=== PATIENT | female | born 2000 | race Caucasian/White ===

== ENCOUNTER 2022-09-12 08:17 | Inpatient (IN) ==
[2022-09-12] MEDS: Ringers Solution, Lactated 1,000 ML IVC SCH ×2 (08:45→11:16)
[2022-09-12] MEDS ORDERED: Naloxone 0.4 MG/ML INJ IVP PRN ×2 (08:55→15:35)
[2022-09-12] MEDS ORDERED: Ondansetron 4 MG/2 ML VIAL IVP PRN ×2 (08:55→15:35)
[2022-09-12] MEDS ORDERED: miSOPROStoL 25 MCG TABLET VG PRN (08:55)
[2022-09-12] MEDS ORDERED: Metoclopramide 10 MG/2 ML VIAL IVP PRN (08:55)
[2022-09-12] MEDS ORDERED: *HR* Nalbuphine 10 MG/ML AMPUL IV PRN (08:55)
[2022-09-12] MEDS ORDERED: Lidocaine 1% 20 ML MDV ID PRN (08:55)
[2022-09-12] MEDS ORDERED: Famotidine 20 MG/2 ML VIAL IVP PRN (08:55)
[2022-09-12] MEDS ORDERED: Azithromycin 500 MG in 0.9 % Sodium Chloride 250 ML IVPB PRN (08:55)
[2022-09-12] MEDS ORDERED: Ringers Solution, Lactated 1,000 ML ONE (09:00)
[2022-09-12 10:19] LABS: Basophils # 0.1 K/mcL (0.0-0.2); Basophils % 0.6 %; Eosinophils # 0.1 K/mcL (0.0-0.6); Eosinophils % 1.1 %; Hematocrit 33.5 % (35.3-44.9); Hemoglobin 10.7 g/dL (11.5-15.4); Lymphocytes # 1.9 K/mcL (0.6-4.6); Lymphocytes % 15.3 %; Mean Corpuscular HGB Conc 31.9 g/dL (31.6-35.5); Mean Corpuscular Hemoglobin 25.8 pg (28.0-33.3); Mean Corpuscular Volume 80.9 fL (83.0-100.0); Mean Platelet Volume 12.1 fL (9.4-12.4); Monocytes # 0.9 K/mcL (0.0-1.3); Monocytes % 7.2 %; Neutrophils # 9.1 K/mcL (1.6-8.9); Platelet Count 250 K/mcL (140-400); Red Blood Count 4.14 M/mcL (3.82-4.97); Red Cell Distribution Width 14.4 % (11.5-14.5); Segmented Neutrophils % 73.8 %; White Blood Count 12.3 K/mcL (4.3-11.1)
[2022-09-12 11:06] LABS: Amphetamine Screen,Urine Negative ng/mL (Cutoff=1000); Barbiturate Screen,Urine Negative ng/mL (Cutoff=200); Benzodiazepines Screen,Urine Negative ng/mL (Cutoff=200); Cannabinoid Screen,Urine Positive ng/mL (Cutoff = 50); Cocaine Screen,Urine Negative ng/mL (Cutoff= 300); Opiate Screen,Urine Negative ng/mL (Cutoff=300); Phencyclidine Screen,Urine Negative ng/mL (Cutoff=25)
[2022-09-12] MEDS ORDERED: Oxytocin 30 UNIT/503 ML BAG IVC ONE ×2 (11:10→14:47)
[2022-09-12] MEDS ORDERED: CeFAZolin 2,000 MG/120 ML BAG IVPB ONE (11:30)
[2022-09-12] MEDS ORDERED: EPHEDrine sulfate 50 MG/10 ML VIAL IVP ONE (11:36)
[2022-09-12] MEDS ORDERED: *HR* Morphine Sulfate/PF 10 MG/10 ML AMPUL ONE (11:37)
[2022-09-12] MEDS ORDERED: *HR* FentaNYL (PF) 100 MCG/2 ML VIAL ONE (11:37)
[2022-09-12] MEDS ORDERED: Acetaminophen IV 1,000 MG/100 ML BAG IVPB ONE (11:57)
[2022-09-12] MEDS ORDERED: Ondansetron 4 MG/2 ML VIAL ONE (12:06)
[2022-09-12] MEDS ORDERED: Ketorolac 30 MG/ML VIAL ONE (12:13)
[2022-09-12] MEDS ORDERED: 0.9 % Sodium Chloride 1,000 ML IVC SCH (15:35)
[2022-09-12] MEDS ORDERED: Oxytocin 30 UNIT/503 ML BAG IVC SCH (15:35)
[2022-09-12] MEDS ORDERED: Simethicone 80 MG TAB.CHEW PO PRN (15:35)
[2022-09-12] MEDS: *HR* OxyCODONE Immed Rel 5 MG TABLET PO PRN (15:47)
[2022-09-12] MEDS: Acetaminophen 325 MG TABLET PO SCH ×2 (15:47→21:30)
[2022-09-12] MEDS: Ibuprofen 600 MG TABLET PO SCH (17:57)
[2022-09-13] MEDS: Acetaminophen 325 MG TABLET PO SCH ×3 (03:45→14:12)
[2022-09-13] MEDS: Ibuprofen 600 MG TABLET PO SCH ×2 (03:45→14:12)
[2022-09-13 04:36] LABS: Basophils % 0.2 %; Eosinophils % 0.2 %; Hematocrit 29.7 % (35.3-44.9); Hemoglobin 9.7 g/dL (11.5-15.4); Immature Granulocytes % 0.8 % (0-4); Lymphocytes % 9.5 %; Mean Corpuscular HGB Conc 32.7 g/dL (31.6-35.5); Mean Corpuscular Hemoglobin 26.4 pg (28.0-33.3); Mean Corpuscular Volume 80.7 fL (83.0-100.0); Monocytes # 1.3 K/mcL (0.0-1.3); Monocytes % 6.4 %; Neutrophils # 17.3 K/mcL (1.6-8.9); Platelet Count 240 K/mcL (140-400); Red Blood Count 3.68 M/mcL (3.82-4.97); Red Cell Distribution Width 14.3 % (11.5-14.5); Segmented Neutrophils % 82.9 %
[2022-09-13 04:39] LABS: White Blood Count 20.9 K/mcL (4.3-11.1)
[2022-09-13] MEDS: *HR* OxyCODONE Immed Rel 5 MG TABLET PO PRN (06:54)
[2022-09-13] MEDS ORDERED: Prenatal Vit/FA 1 EACH TABLET PO SCH (09:00)
[2022-09-13] MEDS ORDERED: Lanolin 7 G OINT...G. TP PRN (15:09)
[2022-09-13 15:33] VITALS: BP 111/66; PULSE 58; TEMP 97.8; O2SAT 100
== END 2022-09-13 18:26 | disposition home or self-care (01) | DRG 540 ==
LOC: 1NENULAB 08:17 → 1NENUOBS 15:10
PROVIDERS: ADMIT Obstetrics & Gynecology; ATTEND Obstetrics & Gynecology